=== PATIENT | female | born 1945 ===

== ENCOUNTER 2021-04-10 12:06 | Emergency (ER) | payer MEDICARE, OTHER ==
[2021-04-10] MEDS ORDERED: Oxymetazoline 0.05% Nasal Spray 30 ML Bottle NAS ONE (12:12)
--- NOTE | 2021-04-10 12:12 | EDM.PDOC ---
ED HPI GENERAL MEDICAL PROBLEM - General Stated Complaint: [id number] NOSEBLEED ON BLOOD THINNERS Time Seen by Provider: 04/10/21 12:11 Source of Information: Reports: Patient, RN, RN Notes Reviewed History Limitations: Reports: No Limitations - History of Present Illness INITIAL COMMENTS - FREE TEXT/NARRATIVE: Dirk is a 75 y/o female who presents to the ED via personal vehicle with for complaints of epistaxis. The patient reports she has been on Plavix for approximately three years, and was started on ASA this past month following a cardiac ablation. The patient states her nose bleed started this morning at 0200 and has waxed and waned in severity since that time. She was able to stop the nose bleed from [id number], but has struggled since in restarted. The patient reports she sleeps with a CPap machine with humidity and uses nasal saline spray in her bilateral nostrils. She denies vision changes, headache, nasal trauma, nasal pain, cough, sore throat, or palpitations. The patient has taken no additional medications for her symptoms. - Related Data Allergies Allergy/AdvReac Type Severity Reaction Status Date / Time No Known Allergies Allergy Verified 04/10/21 12:15 ED ROS GENERAL - Review of Systems Review Of Systems: Comprehensive ROS is negative, except as noted in HPI. ED EXAM, GENERAL - Physical Exam Exam: See Below Exam Limited By: No Limitations General Appearance: Alert, No Apparent Distress Eye Exam: Bilateral Eye: EOMI, Periorbital Changes (Periorbital bruising), PERRL (3mm), Other (Linear incision with sutures; Patient underwent blepharoplast last week ) Ears: Normal External Exam, Normal Canal, Hearing Grossly Normal, Normal TMs Ear Exam: Bilateral Ear: Auricle Normal, Canal Normal, TM normal Nose: Other (Active bleeding to right nare; Left nare dry). No: Nasal Tenderness, Nasal Deformity, Nasal Swelling Throat/Mouth: Normal Inspection, Normal Lips, Normal Teeth, Normal Gums, Normal Oropharynx, Normal Voice, No Airway Compromise Head: Atraumatic, Normocephalic Neck: Normal Inspection, Supple, Non-Tender, Full Range of Motion. No: Lymphadenopathy (L), Lymphadenopathy (R) Respiratory/Chest: No Respiratory Distress, Lungs Clear, Normal Breath Sounds, No Accessory Muscle Use, Chest Non-Tender Cardiovascular: Normal Peripheral Pulses, Regular Rate, Rhythm, No Edema, No Gallop, No JVD, No Murmur, No Rub Peripheral Pulses: 2+: Radial (L), Radial (R) GI/Abdominal: Normal Bowel Sounds, Soft, Non-Tender, No Distention, No Abnormal Bruit, No Mass, Pelvis Stable Neurological: Alert, Oriented, CN II-XII Intact, Normal Cognition, Normal Gait, No Motor/Sensory Deficits Psychiatric: Normal Affect, Normal Mood Skin Exam: Warm, Dry, Normal Color, No Rash. No: Cyanosis, Jaundice, Mottled, Pallor Course - Vital Signs Last Recorded V/S: Last Vital Signs Temp 97.8 F 04/10/21 12:17 Pulse 87 04/10/21 12:17 Resp 16 04/10/21 12:17 BP 155/80 H 04/10/21 12:17 Pulse Ox 96 04/10/21 12:17 - Orders/Labs/Meds Meds: Medications Discontinued Medications Generic Name Dose Route Start Last Admin Trade Name Silvioq PRN Reason Stop Dose Admin Epinephrine HCl 15 mg 04/10/21 12:15 04/10/21 12:29 Epinephrine 1:10,000 1 Mg/10 Ml Syringe IVPUSH 04/10/21 12:16 Not Given ONETIME ONE Lidocaine/Epinephrine 15 ml 04/10/21 12:20 04/10/21 12:29 Lidocaine 1% With Epinephrine 1:100,000 20 Ml Mdv INJECT 04/10/21 12:21 15 ml ONETIME ONE Administration Oxymetazoline HCl 5 ml 04/10/21 12:12 04/10/21 12:29 Oxymetazoline 0.05% Nasal [place] 30 Ml Bottle JOSE 04/10/21 12:13 2 sprays ONETIME ONE Administration - Re-Assessments/Exams Free Text/Narrative Re-Assessment/Exam: 04/10/21 Afrin with Epi instilled into right nare. Findings of examination reviewed with patient. Discussed supportive cares for prevention of epistaxis. Red flag signs and symptoms which would warrant reevaluation reviewed. Patient verbalized understanding and agreement with the plan of care. Departure - Departure Time of Disposition: 12:58 Disposition: Home, Self-Care 01 Condition: Good Clinical Impression: Epistaxis not due to trauma, Chronic anticoagulation - Discharge Information *PRESCRIPTION DRUG MONITORING PROGRAM REVIEWED*: Not Applicable *COPY OF PRESCRIPTION DRUG MONITORING REPORT IN PATIENT PANCHO: Not Applicable Instructions: Nosebleed, [id number] Forms: ED Department Discharge Additional Instructions: 1.) Apply petroleum jelly to both nares two times a day. 2.) Should you rebleed, apply pressure, use Afrin/Epi combo (two sprays). You can do this twice. If no relief, return to the emergency department. 3.) Follow up with primary care provider regarding today's visit. 4.) Drink plenty of water to stay hydrated. 5.) Continue using humidifier at night. Sepsis Event Note (ED) - Focused Exam Vital Signs: Vital Signs Temp Pulse Resp BP Pulse Ox 04/10/21 12:17 97.8 F 87 16 155/80 H 96
[2021-04-10] MEDS ORDERED: EPINEPHrine 1:10,000 1 MG/10 ML Syringe IVPUSH ONE (12:15)
[2021-04-10] MEDS ORDERED: Lidocaine 1% with EPINEPHrine 1:100,000 20 ML MDV INJECT ONE (12:20)
== END 2021-04-10 13:09 | disposition home or self-care (01) ==
LOC: DL.ED 12:06
DX: R04.0 Epistaxis (principal); D68.9 Coagulation defect, unspecified
CPT/HCPCS: 99283; A9270